=== PATIENT | male | born 1990 | race Caucasian/White ===

== ENCOUNTER 2018-02-12 10:42 | Emergency (ER) | payer MEDICAID, SELFPAY ==
[2018-02-12 10:43] VITALS: BP 144/114; BP 145/94; PULSE 75; PULSE 76; RESP 16; RESP 18; TEMP 36.7; O2SAT 98; O2SAT 99; BMI 20.1
--- NOTE | 2018-02-12 10:59 | CT_ITS ---
STUDY: CT ABDOMEN AND PELVIS WITHOUT CONTRAST REASON FOR EXAM: Male, 27 years old. Left-sided flank pain with nausea and vomiting. RADIATION DOSAGE (If Supplied By Facility): CTDIvol = ( 6.04 ) mGy, DLP = ( 289.93 ) mGycm TECHNIQUE: Transaxial images were obtained from the dome of the diaphragm to the symphysis pubis without oral contrast, and without intravenous contrast. Sagittal and coronal images were reconstructed. Individualized dose optimization techniques were used for this CT. COMPARISON: Prior comparison studies are not available for review at this time. FINDINGS: The visualized lung bases are unremarkable. The visualized portions of the heart are within normal limits. Normal liver. Normal gallbladder and extrahepatic biliary system. Normal spleen. Normal pancreas. Normal bilateral adrenal glands. Normal right kidney. There is mild left-sided hydronephrosis and hydroureter secondary to distal ureteral calculus measuring approximately 3 mm in greatest dimension. Normal visualized stomach. There is no evidence for dilated bowel, ascites or pneumoperitoneum. Small bowel has a grossly normal appearance. Normal colon. The appendix is visualized and appears normal. Normal abdominal aorta. There is venous distention of the inferior vena cava (IVC). Normal retroperitoneum. Normal urinary bladder. Normal visualized prostate gland. Normal abdominal wall. Normal osseous structures. CT/Abdomen/Pelvis without Cont IMPRESSION: Mild left-sided hydronephrosis and hydroureter secondary to distal ureteral calculus Electronically Signed: Lizette Carrington MD at 11:54 EDT , Service support ,
--- NOTE | 2018-02-12 11:00 | ED.VISSUMM ---
- ER Visit Summary Date of Service: 02/12/18 Chief Complaint: Left flank pain History of Present Illness: The patient is a 27 M who states that he is from [place]. 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 He describes a sharp and stabbing. He notes nausea vomiting states he cannot get comfortable. He states that within the past year he went to an emergency room in [place] where he was diagnosed with a kidney stone. He states it took 10 days but eventually passed a stone and did not require any urologic intervention. He did follow-up with urologist. Currently takes no medications. Physical Examination: Afebrile vital signs are stable Gen: Well-nourished well-developed and appears quite uncomfortable in the room Head: Normocephalic atraumatic Eyes: Perrl EOMI ENT: TMs clear no rhinorrhea moist mucous membranes Neck: Supple no lymphadenopathy no JVD nontender CVS: Regular rate rhythm no murmurs normal S1-S2 Respiratory: No distress clear to auscultation bilaterally chest nontender Abdomen: Soft nontender nondistended normal bowel sounds no masses Back: Left CVA tenderness Extremity: Nontender no edema Skin: Normal color no rash Neuro: alert orientated ?3 CN II-XII intact normal strength sensation reflexes gait cerebellar Psych: Normal affect normal mood Test Results: CTA demonstrated a distal 3.3 mm distal ureteral stone with associated hydronephroureter. Urinalysis was negative for infection. BMP is normal. Emergency Department Course and Treatment: IV was established and the patient received Toradol Zofran and fluids. Patient is overall improved. I will be writing for Oxyir, Flomax, Zofran. Patient has 2+ bacteria in the urine. We will do a urine culture and prescribed Keflex. He is to follow-up with his urologist in [place]. Impression: 1. Left distal ureterolithiasis 3.3 mm 2. Left hydronephroureter This note was generated with Plexation software. It may contain incorrect words, spelling, and punctuation that were not noted in review of the chart prior to signing ED Disposition - Plan for ED Patient: Disposition: Home or Assisted Living Chief Complaint: Flank Pain Instructions: ED Stone Renal W Colic Prescriptions: Oxycodone [Oxyir] 5 - 10 mg PO Q6H PRN PRN 4 Days #20 tab PRN Reason: Pain Ondansetron [Zofran Odt] 4 mg PO Q8H PRN PRN #10 tab PRN Reason: Nausea Tamsulosin HCl [Flomax] 0.4 mg PO DAILY #7 cap Cephalexin [Keflex] 500 mg PO BID #10 cap Additional Instructions: Please follow-up with your urologist in [place]. Return to this emergency department or the nearest 1 if your pain is not controlled.
--- NOTE | 2018-02-12 11:04 | ED.DCSUM_ITS ---
- ER Visit Summary Date of Service: 02/12/18 Chief Complaint: Left flank pain History of Present Illness: The patient is a 27 M who states that he is from [place]. 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 He describes a sharp and stabbing. He notes nausea vomiting states he cannot get comfortable. He states that within the past year he went to an emergency room in [place] where he was diagnosed with a kidney stone. He states it took 10 days but eventually passed a stone and did not require any urologic intervention. He did follow-up with urologist. Currently takes no medications. Physical Examination: Afebrile vital signs are stable Gen: Well-nourished well-developed and appears quite uncomfortable in the room Head: Normocephalic atraumatic Eyes: Perrl EOMI ENT: TMs clear no rhinorrhea moist mucous membranes Neck: Supple no lymphadenopathy no JVD nontender CVS: Regular rate rhythm no murmurs normal S1-S2 Respiratory: No distress clear to auscultation bilaterally chest nontender Abdomen: Soft nontender nondistended normal bowel sounds no masses Back: Left CVA tenderness Extremity: Nontender no edema Skin: Normal color no rash Neuro: alert orientated ?3 CN II-XII intact normal strength sensation reflexes gait cerebellar Psych: Normal affect normal mood Test Results: CTA demonstrated a distal 3.3 mm distal ureteral stone with associated hydronephroureter. Urinalysis was negative for infection. BMP is normal. Emergency Department Course and Treatment: IV was established and the patient received Toradol Zofran and fluids. Patient is overall improved. I will be writing for Oxyir, Flomax, Zofran. Patient has 2+ bacteria in the urine. We will do a urine culture and prescribed Keflex. He is to follow-up with his urologist in [place]. Impression: 1. Left distal ureterolithiasis 3.3 mm 2. Left hydronephroureter This note was generated with [employer]ur[employer]ation software. It may contain incorrect words, spelling, and punctuation that were not noted in review of the chart prior to signing ED Disposition - Plan for ED Patient: Disposition: Home or Assisted Living Chief Complaint: Flank Pain Instructions: ED Stone Renal W Colic Prescriptions: Oxycodone [Oxyir] 5 - 10 mg PO Q6H PRN PRN 4 Days #20 tab PRN Reason: Pain Ondansetron [Zofran Odt] 4 mg PO Q8H PRN PRN #10 tab PRN Reason: Nausea Tamsulosin HCl [Flomax] 0.4 mg PO DAILY #7 cap Cephalexin [Keflex] 500 mg PO BID #10 cap Additional Instructions: Please follow-up with your urologist in [place]. Return to this emergency department or the nearest 1 if your pain is not controlled.
[2018-02-12] MEDS: Ondansetron 4 MG/2 ML Vial IV (11:19)
[2018-02-12] MEDS: 0.9% Normal Saline 1,000 ML 250 ML IV (11:19)
[2018-02-12] MEDS: Ketorolac 30 MG/ML Syringe IV (11:19)
[2018-02-12] MEDS: Morphine 4 MG/ML Syringe IV (11:19)
[2018-02-12 11:41] LABS: Anion Gap 6 (5-15); BUN 10 mg/dL (7-18); BUN/Creat Ratio 9.4 RATIO (10-20); Chloride 104 mmol/L (98-107); Creatinine, Serum 1.06 mg/dL (0.70-1.30); EST Glomerular Filtration Rate 88 mL/min (>60); Est Glom Filt Rate - Afr Amer 107 mL/min (>60); Estimated Creatinine Clearance 83.95 ml/min; Glucose 109 mg/dL (74-106); Potassium 3.6 mmol/L (3.5-5.1); Sodium Level 143 mmol/L (136-145)
[2018-02-12 11:44] LABS: Mucous, Urine 0 SEEN /hpf (<or=2+)
[2018-02-12 11:45] LABS: Color, Urine Yellow (Yellow); Glucose, Dipstick Normal (Normal); Ketone-Dipstick Negative (Negative); Leukocyte Esterase-Dipstick 25 /ul (Negative); Nitrite-Dipstick Negative (Negative); Occult Blood-Urine 250 /ul (Negative); Protein-Dipstick 30 mg/dl (Negative); Specific Gravity, Urine 1.015 (1.002-1.030); Urine Bilirubin Dipstick Negative (Negative); Urine Clarity Cloudy (Clear); Urine Urobilinogen Normal (Normal)
[2018-02-12 12:02] LABS: Red Blood Cells-Urine > 100 SEEN /hpf (0-5)
[2018-02-12 12:03] LABS: White Blood Cells 0-5 SEEN /hpf (0-5)
[2018-02-12 12:04] LABS: Amorphous Sediment 3+; Bacteria 2+ /hpf (None Seen); Squamous Epithelial Cells - UA 0-5 SEEN /hpf (0-5)
[2018-02-12 12:22] VITALS: BP 138/84; PULSE 74; RESP 18; O2SAT 99
== END 2018-02-12 12:23 | disposition home or self-care (01) ==
PROVIDERS: Emergency Provider Emergency Medicine
DX: N13.2 Hydronephrosis with renal and ureteral calculous obstruction (principal); Z87.442 Personal history of urinary calculi
CPT/HCPCS: 74176; 80048; 81001; 87086; 96361; 96374; 96375; 99283; J7030; J2405